=== PATIENT | male | born 1970 | race Caucasian/White ===

== ENCOUNTER 2020-07-17 17:42 | Observation (INO) ==
[2020-07-17] MEDS ORDERED: Naloxone 0.4 MG/ML INJ IVP PRN ×2 (18:44→20:13)
[2020-07-17] MEDS ORDERED: Milk and Molasses Enema 200 ML RC ONE ×2 (18:48→20:13)
[2020-07-17] MEDS ORDERED: Lactulose Oral Soln 20 GM/30 ML UDC PO SCH (19:00)
[2020-07-18] MEDS: Lactulose Oral Soln 20 GM/30 ML UDC PO SCH ×5 (00:04→15:48)
[2020-07-18] MEDS ORDERED: Milk and Molasses Enema 200 ML RC ONE ×2 (00:05)
[2020-07-18 07:30] VITALS: BP 110/71
[2020-07-18] MEDS ORDERED: Multivit/Ca/Min/Fe/FA 1 TAB TABLET PO SCH ×2 (09:00)
== END 2020-07-18 18:00 | disposition other institution (70) ==
LOC: INPPIK 17:42 → EMEROOPIK 17:42 → INPPIK 19:53
PROVIDERS: ADMIT Family Medicine; ATTEND Family Medicine